=== PATIENT | female | born 2000 | race Caucasian/White ===

== ENCOUNTER 2024-08-26 19:23 | Emergency (ER) | payer OTHER, SELFPAY ==
[2024-08-26 20:01] VITALS: BMI 30.3
[2024-08-26 21:36] VITALS: BP 120/83
--- NOTE | 2024-08-26 22:15 | ED.GENMED ---
History of Present Illness
General
Chief Complaint: Crisis Evaluation
Source: patient and family
Exam Limitations: none
Time Seen by Provider: 08/26/24 20:02
Nursing documentation reviewed up to this point in time: agreed with
History of Present Illness
History of Present Illness:
Pt with history of anxiety and depression, presents to ED secondary to increased stress level recently. Pt is wondering whether or not increasing prozac dose last week may be contributing to her symptoms. Pt has had thoughts of hurting herself but
states that she currently does not have any suicidal thought/plans at this time. Denies recent illness. Pt otherwise has no additional complaints. In fact, since arrival in ED, patient states that she feels much improved and would like to be
discharged home.
Past History
Past History
ED Past Medical History: Psychiatric (A/D, SI, Bipolar)
ED Past Surgical History: None
Social History
Tobacco: Non-smoker
Review of Systems
Review of Systems
Allergies reviewed?: Yes
All Other Systems: ROS reviewed and negative except as documented in HPI and ROS
Constitutional: Reports no symptoms
EENT: Reports no symptoms
Respiratory: Reports no symptoms
Cardiac: Reports no symptoms
ABD/GI: Reports no symptoms
Musculoskeletal: Reports no symptoms
Skin: Reports no symptoms
Neurological: Reports no symptoms
Psychiatric: Reports depression and anxiety
Phy Exam
Physical Exam
Physical Exam:
General: well nourished female, in no acute distress. afebrile
Heent: nc/at. eomi
Neuro: aao x 3. no focal neurological deficit.
Skin: no rash.
Ext: no edema.
Psych: pleasant and cooperative
Course
Orders/Labs/Results
Orders:
Orders
08/26/24 19:33
1:1 Observation - Suicide/ Violent Behavior As Directed
08/26/24 20:43
Crisis Consult Urgent
Reason for Consult: suicidal ideation
Vital Signs
Initial and Last Documented VS:
Initial Vital Signs
Temp Pulse Resp Pulse Ox
98.7 F 98 15 99
08/26/24 19:27 08/26/24 19:27 08/26/24 19:27 08/26/24 19:27
Last Documented Vital Signs
Temp Pulse Resp BP Pulse Ox
98.9 F 83 15 120/83 97
08/26/24 21:36 08/26/24 21:36 08/26/24 19:27 08/26/24 21:36 08/26/24 22:15
MDM/Problems Addressed
MDM/Problems Addressed:
Pt does not wish to speak with [facility] sand control worker at this time. Denies any suicidal ideation and feels comfortable going home. Pt's grandmother also feels comfortable going home at this time and observing her closely. Pt will f/u with her
therapist for re-evaluation or return to ED with worsening symptoms.
*Pulse Oximetry
SaO2: 97
Oxygen Mode of Delivery: Room air
Patient hypoxic: no
*Critical Care Note
Total Time (30-74mins, 75-104mins- exclusive of procedures): Not Applicable
ED Attending Note
-
Portions of this chart may have been created with voice recognition software.� Occasional wrong word or��sound alike� substitutions may have occurred due to the inherent limitations of voice recognition software.
Discharge Plan
Departure
Patient Disposition: Home (Routine Discharge)
Date of Disposition: 08/26/24
Time of Disposition: 22:15
Patient with high blood pressure during this ER visit?: Yes
Condition: Good
Discharge Problem:
Anxiety
Instructions: Anxiety, Adult (DC)
Prescriptions:
No Action
fluoxetine 20 MG capsule
40 mg PO DAILY
norethindrone-e.estradiol-iron [Blisovi Fe 03/15 ()] 1 EACH tablet
1 ea PO DAILY
tramadol [Ultram] 50 MG tablet
50 mg PO Q6HPRN PRN (Reason: severe/breakthrough pain) Qty: 10 0RF
Referrals:
Jennifer Mc MD [Family Provider, Family Practice]
Activity Restrictions/Additional Instructions:
As discussed, please follow-up with your psychiatrist for reevaluation or return to ED with worsening symptoms.
Interventions
Interventions:
*Risk Screen - Suicide Last Done: 08/26/24 19:27
*General Assessment Last Done: 08/26/24 19:27
*Neglect/Abuse Screening Last Done: 08/26/24 19:27
*ED- Fall Risk Assessment Last Done: 08/26/24 22:22
*ED COVID-19 Vaccine History Last Done: 08/26/24 19:27
*Nursing Disposition Last Done: 08/26/24 22:22
ED-Psychological Assessment Last Done: 08/26/24 19:56
Discharge Date and Time
Discharge Date/Time: 08/26/24 22:22
Print Language: BRUNEIAN
== END 2024-08-26 22:22 | disposition home or self-care (01) ==
LOC: EMR 19:23
PROVIDERS: EMERGENCY PHYSICIAN Emergency Medicine; FAMILY PHYSICIAN Family Medicine
DX: F41.9 Anxiety disorder, unspecified (principal); R03.0 Elevated blood-pressure reading, without diagnosis of hypertension; F32.A Depression, unspecified
CPT/HCPCS: 99283